=== PATIENT | male | born 1955 | race Caucasian/White ===

== ENCOUNTER 2019-03-30 10:09 | Day surgery (SDC) | payer BC ==
[~2019-03-30 10:09] MED LIST: Lactated Ringers 1,000 ML IV SCH; cefOXitin 2 GM in Premix Bag 1 BAG IV ONE
[2019-03-30] MEDS ORDERED: Midazolam 1 MG/ML 2 ML SDV ONE (10:34)
[2019-03-30] MEDS ORDERED: Propofol 200 MG/20 ML SDV ONE ×3 (10:34→11:31)
--- NOTE | 2019-03-30 10:55 | PCM.PREANE ---
Preanesthetic Assessment - Anesthesia/Transfusion/Family Hx Anesthesia History: Prior Anesthesia Without Reaction Family History of Anesthesia Reaction: No Transfusion History: No Prior Transfusion(s) - Review of Systems General: No Symptoms Pulmonary: No Symptoms (tested for DIOMEDES 1 wk ago, results not back yet) Cardiovascular: No Symptoms Gastrointestinal: No Symptoms Neurological: No Symptoms Other: Reports: Diabetes - Physical Assessment NPO Status Date: 03/29/19 Vital Signs: Last Vital Signs Temp 97.5 F 03/30/19 10:40 Pulse 61 03/30/19 10:40 Resp 16 03/30/19 10:40 BP 117/77 03/30/19 10:40 Pulse Ox 95 03/30/19 10:40 Height: 5 ft 11 in Weight: 107.955 kg ASA Class: 3 Mental Status: Alert & Oriented x3 Airway Class: Mallampati = 3 Dentition: Reports: Normal Dentition ROM/Head Extension: Full Lungs: Clear to Auscultation, Normal Respiratory Effort Cardiovascular: Regular Rate, Regular Rhythm - Allergies Allergies/Adverse Reactions: Allergies Allergy/AdvReac Type Severity Reaction Status Date / Time rosuvastatin [From Crestor] Allergy Rash Verified 03/23/19 10:36 - Blood Blood Available: No - Anesthesia Plan Pre-Op Medication Ordered: None - Acknowledgements Anesthesia Type Planned: General Anesthesia Pt an Appropriate Candidate for the Planned Anesthesia: Yes Alternatives and Risks of Anesthesia Discussed w Pt/Guardian: Yes Pt/Guardian Understands and Agrees with Anesthesia Plan: Yes Additional Comments: anes prob list: cad- s/p cabg in 2014, htn, diomedes, dm2-glu this el=[id number], gerd PLAN: tiva PreAnesthesia Questionnaire HEENT History: Reports: Other (See Below) Other HEENT History: wears glasses, has upper removable partial denture Cardiovascular History: Reports: High Cholesterol, Hypertension Other Respiratory History: his thinks he has sleep apnea- just sent in "home study" Gastrointestinal History: Reports: Colon Polyp, GERD Genitourinary History: Reports: Renal Calculus Other Genitourinary History: has passes 1 kidney stone Musculoskeletal History: Reports: Fracture, Osteoarthritis Other Musculoskeletal History: hx of fx clavicle as a child Endocrine/Metabolic History: Reports: Diabetes, Type II, Obesity/BMI 30+ Oncologic (Cancer) History: Reports: Basal Cell Carcinoma, Prostate - Past Surgical History Head Surgeries/Procedures: Reports: None Cardiovascular Surgical History: Reports: Coronary Artery Bypass Other Cardiovascular Surgeries/Procedures: CABG 5 years ago- 3 vessels GI Surgical History: Reports: Cholecystectomy, Colonoscopy Male Surgical History: Reports: Other (See Below) Other Male Surgeries/Procedures: hx of having "seeds" inplanted into prostate for prostate cancer Musculoskeletal Surgical History: Reports: Arthroscopic Knee, Knee Replacement Other Musculoskeletal Surgeries/Procedures:: bilateral TKA Dermatological Surgical History: Reports: Skin Biopsy - SUBSTANCE USE Smoking Status *Q: Former Smoker Tobacco Use Within Last Twelve Months: No Recreational Drug Use History: No - HOME MEDS Home Medications: Home Meds Aspirin [Adult Low Dose Aspirin EC] 81 mg PO DAILY 03/23/19 [History] Celecoxib 200 mg PO DAILY 03/23/19 [History] Isosorbide Mononitrate 10 mg PO BID 03/23/19 [History] Metoprolol Tartrate 25 mg PO BID 03/23/19 [History] Multivitamin [Daily Multiple Vitamin] 1 tab PO DAILY 03/23/19 [History] Omeprazole 20 mg PO DAILY 03/23/19 [History] Simvastatin 40 mg PO QPM 03/23/19 [History] Tamsulosin HCl 0.4 mg PO DAILY 03/23/19 [History] metFORMIN HCl [Fortamet] 1,000 mg PO BID 03/23/19 [History] - CURRENT (IN HOUSE) MEDS Current Meds: Current Medications Lactated Ringer's (Ringers, Lactated) 1,000 mls @ 125 mls/hr IV ASDIRECTED GABE Discontinued Medications Cefoxitin Sodium 2 gm/ Premix 50 mls @ 100 mls/hr IV ONETIME ONE Stop: 03/30/19 07:29 Midazolam HCl (Versed 1 Mg/Ml) Confirm Administered Dose 2 mg .ROUTE .STK-MED ONE Stop: 03/30/19 10:35 Propofol (Diprivan 20 Ml) Confirm Administered Dose 200 mg .ROUTE .STK-MED ONE Stop: 03/30/19 10:35 Propofol (Diprivan 20 Ml) Confirm Administered Dose 200 mg .ROUTE .STK-MED ONE Stop: 03/30/19 10:35
[2019-03-30] MEDS ORDERED: cefOXitin 1 GM Vial ONE (11:13)
--- NOTE | 2019-03-30 11:55 | PCM.OPNOTE ---
- General Post-Op/Procedure Note Date of Surgery/Procedure: 03/30/19 Operative Procedure(s): Colonoscopy with cold ascending colon, sigmoid colon and rectal polypectomies. Pre Op Diagnosis: Desire for colorectal cancer screening. Personal history of colon polyps. Family history of colon cancer. Post-Op Diagnosis: Descending colon, sigmoid and rectal polyps. Sigmoid diverticulosis. Anesthesia Technique: MAC (ASA III) Primary Surgeon: Sawyer Lindquist Condition: Good Free Text/Narrative:: DICTATION [id number] CPT CODE [id number]
[2019-03-30] MEDS ORDERED: Lactated Ringers 1,000 ML IV SCH (12:00)
--- NOTE | 2019-03-30 12:40 | PCM.POSTAN ---
POST ANESTHESIA ASSESSMENT - MENTAL STATUS Mental Status: Alert, Oriented - VITAL SIGNS Vital Signs: Last Vital Signs Temp 97.5 F 03/30/19 10:40 Pulse 60 03/30/19 12:09 Resp 15 03/30/19 12:09 BP 122/81 03/30/19 12:09 Pulse Ox 94 L 03/30/19 12:09 - RESPIRATORY Respiratory Status: Respiratory Rate WNL, Airway Patent, O2 Saturation Stable - CARDIOVASCULAR CV Status: Pulse Rate WNL, Blood Pressure Stable - GASTROINTESTINAL GI Status: No Symptoms - POST OP HYDRATION Hydration Status: Adequate & Stable
--- NOTE | 2019-03-30 12:40 | PCM48HPAN ---
Post Anesthesia Note - EVALUATION WITHIN 48HRS OF ANESTHETIC Vital Signs in Normal Range: Yes Patient Participated in Evaluation: Yes Respiratory Function Stable: Yes Airway Patent: Yes Cardiovascular Function Stable: Yes Hydration Status Stable: Yes Pain Control Satisfactory: Yes Nausea and Vomiting Control Satisfactory: Yes Mental Status Recovered: Yes Vital Signs: Last Vital Signs Temp 97.5 F 03/30/19 10:40 Pulse 60 03/30/19 12:09 Resp 15 03/30/19 12:09 BP 122/81 03/30/19 12:09 Pulse Ox 94 L 03/30/19 12:09
[2019-03-30 14:17] VITALS: BP 132/76; PULSE 58
--- NOTE | 2019-03-30 14:25 | OR ---
SURGEON: Sawyer Lindquist M.D. DATE OF PROCEDURE: 03/30/2019 OPERATION PERFORMED: Colonoscopy with multiple cold polypectomies from the descending colon, sigmoid colon, and rectum. PRIMARY SURGEON: Dr. Lindquist. ANESTHESIA: MAC. ASA CLASSIFICATION: III. PREOPERATIVE DIAGNOSES: 1. Desire for colorectal cancer screening. 2. Personal history of colon polyps. 3. Family history of colon cancer. POSTOPERATIVE DIAGNOSES: 1. Descending colon polyp. 2. Sigmoid colon polyp. 3. Rectal polyps. 4. Sigmoid diverticulosis. DESCRIPTION OF PROCEDURE: The patient was taken to the endoscopy room and positioned on the endoscopy table in the left lateral decubitus position. Time-out was called for appropriate identification of patient and procedure. Monitored anesthesia care was provided. The colonoscope was inserted into the rectum and advanced with minimal difficulty to the cecum where the colonoscope was retroflexed to visualize the ascending colon from below. The colonoscope was then straightened and slowly withdrawn. The cecum, ascending colon, hepatic flexure, transverse colon, and splenic flexure showed no tumors, polyps, diverticula, or angiodysplastic changes. One small polyp was encountered in the descending colon and removed with the cold biopsy forceps. A second polyp was encountered in the sigmoid colon and also removed and sent separately for histologic analysis. Moderate sigmoid diverticular changes were noted. The colonoscope was then withdrawn to the rectum where several small polyps were encountered in the same area. These were all removed and sent for histologic analysis as one specimen. The colonoscope was then retroflexed to visualize the anal orifice from above. No tumors, polyps, or acute hemorrhoidal changes were noted. The colonoscope was then straightened, the rectum aspirated, and the colonoscope removed. The patient tolerated the procedure well and was taken to recovery room in stable condition. RILEY / DEMI /[id number]
== END 2019-03-30 13:00 | disposition home or self-care (01) ==
LOC: MW.SDS 10:09
PROVIDERS: ATTEND Surgery
DX: Z12.11 Encounter for screening for malignant neoplasm of colon (principal); K63.5 Polyp of colon; K62.1 Rectal polyp; K57.30 Diverticulosis of large intestine without perforation or abscess without bleeding; E11.9 Type 2 diabetes mellitus without complications; E78.5 Hyperlipidemia, unspecified; I10 Essential (primary) hypertension; N42.9 Disorder of prostate, unspecified; M19.90 Unspecified osteoarthritis, unspecified site; Z86.010 Personal history of colon polyps; Z80.0 Family history of malignant neoplasm of digestive organs; Z79.82 Long term (current) use of aspirin; Z79.1 Long term (current) use of non-steroidal anti-inflammatories (NSAID); Z79.84 Long term (current) use of oral hypoglycemic drugs; Z90.49 Acquired absence of other specified parts of digestive tract; Z87.891 Personal history of nicotine dependence
CPT/HCPCS: 45380; J0694; J2250; J2704; J7120; 00812; 88305